=== PATIENT | female | born 1945 | race Caucasian/White ===

== ENCOUNTER 2019-02-05 11:38 | Inpatient (IN) ==
[2019-02-05] MEDS ORDERED: CLINDAMYCIN 600 MG/NS 600 MG/50 ML IVPB IV ONE (12:33)
--- NOTE | 2019-02-05 12:34 | PROVIDER DOCUMENTATION ---
HPI-Musculoskeletal Pain/Inj - GENERAL Chief Complaint: Return/Recheck Stated Complaint: REVISIT / RETURN Time Seen by Provider: 02/05/19 12:33 Source: patient - HX OF PRESENT ILLNESS-MUSKULOSKELTAL Nature of Presenting Problem: 73yof presents to ED with redness/swelling/pain in left lower leg; she states she has had a negative LLE Venous US and has been on Doxycyline and Ceftin without improvement. She denies fever/chills/N/V/paresthesias. Quality of Pain: reports: aching Severity in ED: mild Onset/Duration: gradual, 3 days ago Timing: still present Modifying Factors: improves with: nothing Any recent injury?: No Similar Symptoms Previously?: No Recently seen or treated by another doctor?: Yes (x2 per PCP, has tried Doxycycline and Cephalosporin without improvement) Review of Systems - Adult - REVIEW OF SYSTEMS - ADULT Constitutional: reports: no symptoms reported Eyes: reports: no symptoms reported Ears, Nose, Mouth & Throat: reports: no symptoms reported Cardiovascular: reports: no symptoms reported Respiratory: reports: no symptoms reported Gastrointestinal: reports: no symptoms reported Genitourinary: reports: no symptoms reported Musculoskeletal: reports: no symptoms reported Integumentary: reports: see HPI, other (Left leg redness/swelling) Neurological: reports: no symptoms reported Psychiatric: reports: no symptoms reported Endocrine: reports: no symptoms reported Hematologic/Lymphatic: reports: no symptoms reported Allergic/Immunologic: reports: no symptoms reported Past History - Adult - PAST MEDICAL HISTORY-ADULT Review of Records: reports: Old Records Reviewed, Nursing Assessment Review, Medications Reviewed, Social history reviewed & non-contributory. Cardiovascular: reports: A-Fib - IMMUNIZATION STATUS Childhood Immunizations: See Nurse Assessment Flu Vaccine: See Nurse Assessment - SOCIAL HISTORY Smoking: non-smoker Physical Exam-Injury Related - Physical Exam-Injury Related Initial Vital Signs Reviewed: Yes General Appearance: appears well, alert, no apparent distress Eyes: PERRL/EOMI, pink conjunctivae Head, Ears, Nose, Mouth & Throat: normocephalic/atraumatic, moist mucous membranes, normal ENT inspection Neck: non-tender, full range of motion, supple Respiratory: chest non-tender, lungs clear, normal breath sounds Cardiovascular: normal peripheral pulses, regular rate, rhythm, no edema, no gallop, no JVD Abdominal Exam: normal bowel sounds, non tender, soft, no organomegaly Lymphatic: no adenopathy Back Exam: normal inspection, no CVA tenderness Extremity: normal range of motion, tenderness (Left lower leg moderately erythem atous and edematous) Integumentary: warm/dry Neurologic: training and development professional II-XII nml as tested, grossly normal, no motor/sensory deficits Psych/Mental Status: normal mood/affect, normal thought content, normal thought process, oriented x 3 Progress - PLAN OF CARE/RESULTS Progress/Plan/Lab Results: Vital Signs - 8 hr 02/05/19 11:43 Temperature 97.9 F Pulse Rate 83 Respiratory Rate 18 Blood Pressure 102/61 O2 Sat by Pulse Oximetry 94 L Laboratory Results - last 24 hr 02/05/19 02/05/19 12:02 12:02 WBC 8.68 RBC 4.19 L Hgb 12.5 Hct 37.2 MCV 88.8 MCH 29.8 MCHC 33.6 RDW Std Deviation 15.1 H Plt Count 256 MPV 11.0 H Immature Gran % (Auto) 0.1 Neut % (Auto) 43.8 Lymph % (Auto) 30.1 Rutherford % (Auto) 20.0 H Eos % (Auto) 5.1 Baso % (Auto) 0.9 H Immature Gran # (Auto) 0.01 Neut # (Auto) 3.80 Lymph # (Auto) 2.61 Rutherford # (Auto) 1.74 H Eos # (Auto) 0.44 Baso # (Auto) 0.08 Sodium 136 Potassium 4.0 Chloride 99 Carbon Dioxide 25 Anion Gap 12 BUN 22 Creatinine 0.8 Estimated GFR/1.73 m2 > 60 BUN/Creatinine Ratio 28 Glucose 83 Calculated Osmolality 274 Calcium 8.9 Total Bilirubin 0.80 AST 60 H ALT 40 H Alkaline Phosphatase 172 H Total Protein 6.5 Albumin 4.1 Globulin 2.0 Albumin/Globulin Ratio 2.0 Orders Category Date Time Status Admit - [facility] Routine AdmDCTranf 02/05/19 13:09 Active Activity - Up Ad Sakina ORDERED Care 02/05/19 13:09 Active Saline Loc DIRECTED Care 02/05/19 13:09 Active Saline Loc NOW Care 02/05/19 12:33 Active Vital Signs Order Q 8-HR .ASSESS Care 02/05/19 13:09 Active Regular Diet Diet 02/05/19 13:11 Active BLOOD CULTURE [BLDCUL] Stat Lab 02/05/19 12:35 Ordered CBC WITH DIFF [HEME] Stat Lab 02/05/19 12:02 Completed COMPREHENSIVE METABOLIC PANEL [CHEM] Stat Lab 02/05/19 12:02 Completed Clindamycin 600 mg/D5w Med 02/05/19 12:55 Discontinued 600 mg in 50 ml .ROUTE As directed Clindamycin 600 mg/Ns Med 02/05/19 12:33 Discontinued 600 mg in 50 ml IV NOW Result Diagrams: 02/05/19 12:02 02/05/19 12:02 - REASSESSMENT Reassessment #1 Time Reassessed: 13:12 (Discussed pt with Dr. Philippe, he recommends admit on Clindamycin due to OP tx failure. Discussed with pt, she agrees.) Departure - Departure Date of Disposition Decision: 02/05/19 Time of Disposition Decision: 13:13 DIAGNOSIS: Cellulitis of left lower extremity, Failure of outpatient treatment Disposition: ADMITTED INPATIENT 09 Certified Medical Emergency: Emergent Condition: Stable Referrals and Follow-Ups: Elaine Snyder MD [Primary Care Provider] - - Critical Care Note This patient required my direct & personal management of CC.: No Attestation - Physician/ KYLEIGH Attestation Patient care was provided by Advanced Practice Provider:: Yes Advanced Practice Provider:: Dipti Dwyer Advanced Practice Provider documentation review:: The Mid-level provider documentation, treatment plan and medical decision making was reviewed by the physician who agrees with all treatment and medical decision making by the [facility]. The physician spent face to face time with patient:: No Advanced Practice Provider documentation review:: Supervising physician onsite and consulted in the evaluation and care of this patient. The physician did not have a face to face encounter with the patient.
[2019-02-05 12:43] LABS: BASO# 0.08 X1000 (0.0-0.2); BASO% 0.9 % (0.0-0.8); EOS# 0.44 X1000 (0.0-0.7); EOS% 5.1 % (0.0-10.0); HEMATOCRIT 37.2 % (37.0-47.0); HEMOGLOBIN 12.5 g/dL (12.0-16.0); IMM GRAN# 0.01 X1000 (0.0-0.04); IMM GRAN% 0.1 % (0.0-0.5); LYMPH# 2.61 X1000 (1.2-3.4); LYMPH% 30.1 % (20.5-51.1); MCH 29.8 PG (27-31); MCHC 33.6 g/dL (33-37); MCV 88.8 FL (81-99); MONO# 1.74 X1000 (0.11-0.59); NEUT% 43.8 % (42.2-75.2); PLT 256 X1000 (130-400); RBC 4.19 XMIL (4.2-5.4); RDW 15.1 % (11.5-14.5); WBC 8.68 X1000 (4.8-10.8)
[2019-02-05 12:51] LABS: AGAP 12; ALBUMIN 4.1 g/dL (3.5-5.0); ALKALINE PHOSPHATASE 172 U/L (32-104); BUN 22 mg/dL (8-22); CALCIUM 8.9 mg/dL (8.8-10.2); CHLORIDE 99 mmol/L (98-107); COSMO 274; CREATININE 0.8 mg/dL (0.5-0.9); ESTIMATED GFR > 60; GLUCOSE 83 mg/dL (70-104); GOT 60 U/L (10-30); GPT 40 U/L (10-36); SODIUM 136 mmol/L (136-145); TCO2 25 mmol/L (25-35); TOTAL PROTEIN 6.5 g/dL (6.3-8.3)
[2019-02-05] MEDS ORDERED: CLINDAMYCIN 600 MG/D5W 600 MG/50 ML IVPB ONE (12:55)
[2019-02-05] MEDS ORDERED: ZOFRAN IV PRN (13:47)
[2019-02-05] MEDS ORDERED: TYLENOL PO PRN (13:47)
--- NOTE | 2019-02-05 16:31 | HISTORY AND PHYSICAL ---
ADDENDUM: Patient was seen and examined by myself. Full note dictated and discussed with nurse practitioner. Patient has a history of cellulitis of the left lower extremity. She has been on antibiotics twice at home. Unfortunately, it has continued to worsen. Currently, she has swelling and erythema of her left ankle and left foot. It is warm to the touch and tender. We are going to place her on antibiotics, clindamycin IV, IV fluids, pain control, and we will follow. cc: Ervin Philippe MD
[2019-02-05] MEDS ORDERED: SILDENAFIL CITRATE PO SCH (17:00)
[2019-02-05] MEDS ORDERED: REVATIO PO SCH (17:00)
[2019-02-05 17:08] LABS: BILIRUBIN URINE NEGATIVE (NEGATIVE); BLOOD URINE NEGATIVE (NEGATIVE); GLUCOSE URINE NEGATIVE (NEGATIVE); KETONE URINE NEGATIVE (NEGATIVE); LEUKOCYTES URINE NEGATIVE (NEGATIVE); NITRITE URINE NEGATIVE (NEGATIVE); PH URINE 6.5; PROTEIN URINE NEGATIVE (NEGATIVE); SP GRAVITY URINE 1.005; UROBILINOGEN URINE NORMAL
[2019-02-05 17:09] LABS: CLARITY CLEAR (CLEAR); COLOR YELLOW
[2019-02-05 17:17] LABS: URINE SOURCE CATH
[2019-02-05 17:18] LABS: URINE BACTERIA NEGATIVE /HFP; URINE CAST NONE SEEN /LPF; URINE CRYSTAL NONE SEEN /HPF; URINE EPITHELIAL CELLS >10 /HPF (<10); URINE RBC <10 /HPF (<10); URINE WBC <10 /HPF (<10); URINE YEAST NONE SEEN /HPF
[2019-02-05] MEDS: REVATIO PO SCH (20:06)
[2019-02-05] MEDS: ELIQUIS PO SCH (20:07)
[2019-02-05] MEDS: CLINDAMYCIN 600 MG/D5W 600 MG/50 ML IVPB IV SCH (20:07)
[2019-02-05] MEDS: ULTRAM PO PRN (20:07)
[2019-02-05] MEDS: LASIX PO SCH (20:07)
[2019-02-05] MEDS: COREG PO SCH (20:07)
[2019-02-05] MEDS ORDERED: PARAFON FORTE PO SCH (21:00)
[2019-02-06] MEDS: PRILOSEC PO SCH ×2 (05:37→08:59)
[2019-02-06] MEDS: CLINDAMYCIN 600 MG/D5W 600 MG/50 ML IVPB IV SCH ×3 (05:37→20:10)
[2019-02-06] MEDS: SYNTHROID PO SCH ×4 (05:37→06:15)
[2019-02-06 05:49] LABS: BASO# 0.07 X1000 (0.0-0.2); BASO% 0.8 % (0.0-0.8); EOS# 0.56 X1000 (0.0-0.7); EOS% 6.4 % (0.0-10.0); HEMATOCRIT 35.5 % (37.0-47.0); HEMOGLOBIN 12.1 g/dL (12.0-16.0); IMM GRAN# 0.03 X1000 (0.0-0.04); IMM GRAN% 0.3 % (0.0-0.5); LYMPH# 2.87 X1000 (1.2-3.4); MCH 30.1 PG (27-31); MCHC 34.1 g/dL (33-37); MCV 88.3 FL (81-99); MONO# 1.62 X1000 (0.11-0.59); MONO% 18.6 % (1.7-9.3); MPV 10.7 FL (7.4-10.4); NEUT# 3.56 X1000 (1.4-6.5); NEUT% 40.9 % (42.2-75.2); PLT 249 X1000 (130-400); RBC 4.02 XMIL (4.2-5.4); RDW 14.8 % (11.5-14.5); WBC 8.71 X1000 (4.8-10.8)
[2019-02-06 06:03] LABS: AGAP 12; BUN 23 mg/dL (8-22); CALCIUM 8.5 mg/dL (8.8-10.2); CHLORIDE 101 mmol/L (98-107); COSMO 283; CREATININE 0.8 mg/dL (0.5-0.9); ESTIMATED GFR > 60; GLUCOSE 95 mg/dL (70-104); MAGNESIUM 1.5 mg/dL (1.5-2.7); POTASSIUM 3.7 mmol/L (3.5-5.1); SODIUM 140 mmol/L (136-145); TCO2 27 mmol/L (25-35)
[2019-02-06] MEDS ORDERED: SYNTHROID PO SCH (07:00)
[2019-02-06] MEDS: SINGULAIR PO SCH (08:59)
[2019-02-06] MEDS: KLOR-CON PO SCH (08:59)
[2019-02-06] MEDS: ELIQUIS PO SCH ×2 (08:59→20:10)
[2019-02-06] MEDS: COREG PO SCH ×2 (08:59→20:10)
[2019-02-06] MEDS: LASIX PO SCH ×3 (09:00→20:12)
[2019-02-06] MEDS: REVATIO PO SCH ×3 (09:00→20:09)
--- NOTE | 2019-02-06 09:20 | HISTORY AND PHYSICAL ---
CRM BUSINESS ANALYST: DR. Snyder. CHIEF COMPLAINT: Is worsening cellulitis to the left lower leg. HISTORY OF PRESENT ILLNESS: Ms Washington is a 73-year-old female. She came to the ER today with complaint of left leg cellulitis that she has had for greater than a week. The patient states that she was taking doxycycline p.o. at home. She went to see her primary care doctor DR. Snyder on Wednesday, her cellulitis had not improved so they started her on Keflex. The patient states that the cellulitis continues to worsen. There is significant pain to her left lower leg, edema, and erythema. The patient has had some chills. She has been taking Tylenol and tramadol for her pain. She has not noted any fever, any sweating or palpitations, or diaphoresis. She has not had any chest pain, abdominal pain, difficulty urinating, dysuria, hematuria, urgency or frequency. The patient states she did have some diarrhea but this often happens when she takes antibiotics and she takes Lomotil at home for this. Upon inspection the left lower extremity is very reddened, it does have significant edema. The right leg has some edema also but there is no apparent erythema or any cellulitis noted on the right leg. The patient does have an extensive past medical history which is positive for atrial fibrillation, she has had a pacemaker placed and congestive heart failure, COPD, lymphoma, she has had a splenectomy, she has got pulmonary hypertension, she has had lupus. She has got autoimmune hepatitis. LABORATORY FINDINGS: In the ER do show normal white blood cell count of 8.68. Her AST is 60, her ALT is 40, alkaline phosphatase is 172. Blood cultures were obtained in the ER. PAST MEDICAL HISTORY: Lymphoma, lupus she is in remission, pulmonary hypertension, CHF, COPD, atrial fibrillation with ablation, implant of a pacemaker, autoimmune hepatitis, osteoporosis. PAST SURGICAL HISTORY: 1967 vagotomy and pyloroplasty, 1966 appendectomy, 1985 hysterectomy complete, 1991 a sub clavicle lymph node removal, 2000 shoulder replacement, 2007 liver biopsy, 2013 an ablation for her atrial fibrillation, 2015 nasal implant, 2017 arthroscopic rotator cuff surgery to the right shoulder, 2017 pacemaker implant, 2018 splenectomy, 2019 liver biopsy, 2019 vascular surgeon stopped bleeding from a hematoma. FAMILY HISTORY: Mother had CHF, father had esophageal cancer both are . SOCIAL HISTORY: Patient lives alone in [place]. She denies any smoking, alcohol or illicit drug use. ALLERGIES: Codeine, aspirin, penicillins. MEDICATIONS: 1. Acetaminophen 650 mg p.o. b.i.d. p.r.n. 2. Eliquis 5 mg p.o. b.i.d. 3. Coreg 25 mg p.o. daily. 4. Parafon Forte 250 mg p.o. b.i.d. 5. Premarin vaginal cream as directed. 6. Pepcid Complete 40 mg p.o. p.r.n. 7. Lasix 40 mg p.o. b.i.d. 8. Synthroid 125 mcg p.o. daily. 9. Singulair 10 mg p.o. daily. 10. Potassium 20 mEq p.o. daily. 11. Ultram 50 mg p.o. q.6 hours p.r.n. 12. Myrbetriq 25 mg p.o. daily. 13. Viagra 10 mg p.o. t.i.d. 14. Coreg 12.5 mg p.o. at bedtime. LABS AND DIAGNOSTICS: White blood cell count 8.68, red blood cell count 4.19, hemoglobin 12.5, hematocrit 37.2, platelet count 256,000. Sodium is 136, potassium is 4.0, chloride is 99, carbon dioxide 25, anion gap 12, BUN is 22, creatinine is 0.8, estimated GFR is greater than 60, glucose is 83, calcium is 8.9, total bilirubin is 0.8, AST 60, ALT is 40, alkaline phosphatase is 172. REVIEW OF SYSTEMS: A 10 point review of systems has been obtained and are negative except what is stated above in HPI. PHYSICAL EXAM: VITAL SIGNS: Temperature 98.3, pulse rate 80, respiratory rate 18, blood pressure is 127/58, O2 saturation 98% on room air, weight is 135 pounds 8 ounces, height 5 feet 5. GENERAL: This is a 73-year-old female. She is lying in the ER stretcher. She is in no acute distress at present time. She is well nourished, well developed. HEENT: Atraumatic, normocephalic. Pupils equal, round, reactive to light. Extraocular movements intact. Sclerae is anicteric. Mucous membranes are moist. NECK: Supple. No lymphadenopathy. Trachea is midline. No JVD. No thyromegaly. No bruits. CARDIOVASCULAR: Regular rate and rhythm. No murmurs, gallops or rubs appreciated. RESPIRATORY: Lung sounds are clear with equal chest excursion. Respirations are nonlabored. No accessory muscle usage. ABDOMEN: Soft, nontender, nondistended. Bowel sounds are present x4. NEURO: Cranial nerves 2-12 are intact. Patient is awake, alert, oriented, able to follow commands. MUSCULOSKELETAL: Full distal strength noted however she does have significant pain noted to the left foot, leg region and has some weakness noted in that leg. No abnormalities. No deformities. EXTREMITIES: There is significant edema noted to the left lower extremity ankle and foot region. She does have lots of erythema. It is also warm to touch. There is no clubbing or cyanosis noted. The right leg does have some ankle edema noted is about 2+, DP and PT pulses are present and palpable. There is no erythema noted to the right leg. SKIN: Warm, dry, and intact. There is significant erythema and edema noted to the left lower ankle foot region. There is no edema noted to the right leg and the right leg the skin seems to be shiny and kind of taut. There is no diaphoresis. There is no rashes or bruises. ASSESSMENT AND PLAN: 1. Cellulitis to left lower extremity. We are admitting this patient to medical floor. Patient was on home antibiotics. There were 2 antibiotics started on her in the past week. She has had significant failure with this antibiotic edema and cellulitis has been worsening so we will place her on clindamycin IV. Will provide her with Tylenol and ibuprofen for her pain. I also reordered her tramadol home dose. We will give her Zofran if she has any nausea. We are going recheck labs in the morning. They obtained blood cultures in the emergency room. 2. Congestive heart failure. The patient does have known history of this. She is on Lasix at home. I have reordered all her home medications. 3. Pulmonary hypertension. The patient is on a home dose of sildenafil. She has been seen by Dr. Meza at [facility] for this. We will continue this medication. 4. Hypothyroidism. The patient is on Synthroid at home. We are going to continue her home Synthroid dose. 5. History of lymphoma. The patient did receive some chemotherapy by Dr. Ching at [facility] in [place] and she subsequently developed congestive heart failure, chronic obstructive pulmonary disease and pulmonary hypertension after receiving her treatment for her non-Hodgkin lymphoma. We will follow these conditions. 6. History of atrial fibrillation, has a pacemaker implant and we placed her on hall monitor and monitor her heart rate. 7. Chronic obstructive pulmonary disease. The patient does not seem to be short of breath this time. O2 saturations within normal range on room air, she is not requiring any O2 at this time. We will provide O2 as needed. 8. Gastrointestinal prophylaxis. I placed this patient on Prilosec daily and she can have Zofran for nausea. 9. Deep venous thrombosis prophylaxis. Patient is on Eliquis at home. I have restarted this dose of 5 mg p.o. b.i.d. Patient has been admitted to the medical floor. She has been placed on hall monitor. We are going to repeat her labs in the morning and we have started her on IV antibiotics. Restart her home medications. We provided her with a heart healthy diet. She has pain control of ibuprofen, Tylenol and Ultram as needed. All other further recommendations pending hospital course and lab data. Dictated by KAMRAN Pradhan for Ervin Philippe MD cc: Ervin Philippe MD MTDEriberto
[2019-02-06] MEDS: ULTRAM PO PRN ×2 (10:44→18:29)
[2019-02-06] MEDS: MYRBETRIQ E.R. PO SCH (17:43)
--- NOTE | 2019-02-06 18:33 | PROGRESS NOTE ---
DATE: 02/06/2019 SUBJECTIVE: Patient notes that she is feeling a little bit better. Her left foot is a little less swollen, less tender. OBJECTIVE: Vital signs: Temperature 98.6, pulse 80, respiratory rate 18, BP 113/58. General: Patient is awake, alert. She does not appear to be in as much pain today as she was previously. HEENT: Normocephalic. Neck: Supple. Cardiovascular: Regular rate. Chest: Clear. Abdomen: Soft. Extremities: Moves all extremities. Skin: Left lower extremity has less erythema, less edema. 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 PLAN: We will continue antibiotics, fluids, pain control, and will follow. cc: Ervin Philippe MD
[2019-02-07] MEDS: CLINDAMYCIN 600 MG/D5W 600 MG/50 ML IVPB IV SCH ×3 (04:07→20:53)
[2019-02-07] MEDS: SYNTHROID PO SCH ×2 (06:12)
[2019-02-07] MEDS: PRILOSEC PO SCH (06:12)
[2019-02-07] MEDS: ULTRAM PO PRN ×2 (08:52→20:54)
[2019-02-07] MEDS: SINGULAIR PO SCH (10:11)
[2019-02-07] MEDS: REVATIO PO SCH ×3 (10:12→20:55)
[2019-02-07] MEDS: ELIQUIS PO SCH ×2 (10:12→20:54)
[2019-02-07] MEDS: LASIX PO SCH ×2 (10:12→15:28)
[2019-02-07] MEDS: KLOR-CON PO SCH (10:12)
[2019-02-07] MEDS: COREG PO SCH ×2 (10:12→20:54)
[2019-02-07] MEDS: MYRBETRIQ E.R. PO SCH (18:45)
--- NOTE | 2019-02-07 19:21 | PROGRESS NOTE ---
DATE: 02/07/2019 SUBJECTIVE: Patient notes that her foot and ankle are starting to feel a little bit better. Still red and swollen, beer still runner compounder. Denies any fevers or chills. PHYSICAL EXAMINATION: Vital Signs: Reviewed. She is awake and alert. She is afebrile. Her blood pressure is stable. Heart rate is stable. General: Patient is in no distress. She is pleasant to talk with. HEENT: Normocephalic. Neck: Supple. Cardiovascular: Regular rate. Chest: Clear. Abdomen: Soft. Extremities: Moves all extremities. Her left ankle is still swollen and tender. ASSESSMENT/PLAN: 1. Cellulitis of left lower extremity. At this point, we are going to check her uric acid and make sure that she does not have gout, as she does have lots of swelling that seems to be out of proportion for an infection. 2. Congestive heart failure. Stable. 3. Pulmonary hypertension. 4. Hypothyroidism. cc: Ervin Philippe MD
[2019-02-08 05:13] VITALS: BP 117/52
[2019-02-08] MEDS: CLINDAMYCIN 600 MG/D5W 600 MG/50 ML IVPB IV SCH (05:22)
[2019-02-08] MEDS: SYNTHROID PO SCH ×4 (05:22→06:01)
[2019-02-08] MEDS: PRILOSEC PO SCH (08:50)
[2019-02-08] MEDS: LASIX PO SCH (08:54)
[2019-02-08] MEDS: ULTRAM PO PRN (08:54)
[2019-02-08] MEDS: KLOR-CON PO SCH (08:54)
[2019-02-08] MEDS: ELIQUIS PO SCH (08:54)
[2019-02-08] MEDS: SINGULAIR PO SCH (08:55)
[2019-02-08] MEDS: REVATIO PO SCH (08:57)
[2019-02-08] MEDS: COREG PO SCH (10:09)
--- NOTE | 2019-02-08 10:56 | DISCHARGE SUMMARY ---
ADMISSION DATE: 02/05/2019 DISCHARGE DATE: 02/08/2019 PRIMARY CARE PHYSICIAN: Dr. Elaine Snyder. ADMISSION DIAGNOSES: 1. Cellulitis of left lower extremity. 2. Congestive heart failure, known history of. 3. Pulmonary hypertension. 4. Hypothyroidism. 5. History of lymphoma. 6. History of atrial fibrillation. 7. Chronic obstructive pulmonary disease. DISCHARGE DIAGNOSES: 1. Left lower extremity gout; does not appear to be a left lower extremity cellulitis. 2. Congestive heart failure, stable. 3. Pulmonary hypertension. 4. Hypothyroidism. SUMMARY OF FINDINGS: This is a 73-year-old female, who presented to the ER with complaints of left leg cellulitis for greater than a week. States she had been taking doxycycline at home. She went to see her primary care physician due to her cellulitis not improving, so they started her on Keflex, and it continued to worsen with significant pain into the left lower extremity with swelling and redness and some chills. She was initially placed on IV antibiotics, but the pain and the redness did not appear to be improving, so we checked a uric acid level that was high at 9.3, and she was started on allopurinol 100 mg p.o. daily. We will continue her on Cleocin also, 300 mg p.o. t.i.d., and give her colchicine 0.6 mg p.o. b.i.d. p.r.n. It is felt that she can now safely be discharged to home again. DISCHARGE MEDICATIONS: 1. Eliquis 5 mg p.o. b.i.d. 2. Coreg 25 mg p.o. daily. 3. Coreg 12.5 mg p.o. at bedtime. 4. Lasix 40 mg p.o. b.i.d. 5. Myrbetriq 25 mg p.o. daily. 6. Singulair 10 mg p.o. daily. 7. Potassium 20 mEq p.o. daily. 8. Tylenol 650 mg p.o. b.i.d. p.r.n. 9. Allopurinol 100 mg p.o. daily. 10. Parafon Forte 250 mg p.o. b.i.d. 11. Cleocin 300 mg p.o. t.i.d. #12 with no refills. 12. Colchicine 0.6 mg p.o. b.i.d. p.r.n. 13. Premarin vaginal cream as directed. 14. Pepcid Complete Chew 40 mg p.o. p.r.n. 15. Synthroid 125 mcg p.o. daily. 16. Viagra 10 mg p.o. t.i.d. 17. Tramadol 50 mg p.o. q. 6 hours p.r.n. FOLLOWUP: She will need to follow up with her primary care physician in the next 1 to 2 weeks and call their office for an appointment. All discharge instructions have been reviewed with the patient and she verbalized understanding. TIME SPENT: This is a 35 minute discharge. Dictated by KAMRAN Perry for Ervin Philippe MD cc: KAMRAN Perry MD Bernice Swain, MD
--- NOTE | 2019-02-08 19:32 | DISCHARGE SUMMARY ---
ADMISSION DATE: 02/05/2019 DISCHARGE DATE: 02/08/2019 Addendum Report Patient seen and examined by myself. Full note dictated and discussed with nurse practitioner. The patient will be discharged home. She still has some pain and swelling in her left ankle, left foot. I expect this may be more due to gout as her uric acid is elevated. We will discharge her home on allopurinol and colchicine. She will follow up outpatient with treatment facility of choice. Please see full dictation. cc: Ervin Philippe MD
== END 2019-02-08 11:53 | disposition home or self-care (01) | DRG 554 ==
LOC: P.ED 11:38 → P.MEDSURG 15:02
PROVIDERS: ATTEND Family Medicine